=== PATIENT | male | born 1950 | race Caucasian/White ===

== ENCOUNTER 2017-07-18 18:38 | Inpatient (IN) | payer MEDICARE, BC ==
[2017-07-18 19:51] LABS: ABS Basophils 0.1 10^3/ul (0-0.2); ABS Eosinophils 0.3 10^3/ul (0-0.6); ABS Monocytes 0.5 10^3/ul (0-0.8); ABS Nucleated RBC 0 10^3/ul; Eosinophil % 3.4 % (0-6); Hematocrit 44 % (42-52); Hemoglobin 14.7 g/dl (14.0-18.0); Lymphocyte % 19.8 % (25-47); Mean Corpuscular HGB Conc 34 g/dl (31-36); Mean Corpuscular Hemoglobin 31 pg (27-31); Mean Corpuscular Volume 93 fL (80-94); Mean Platelet Volume 9 um3 (7.4-10.4); Nucleated Red Blood Cells % 0.1; Platelet Count 226 10^3/ul (150-450); Red Blood Count 4.71 10^6/ul (4.0-5.4); Red Cell Distribution Width 14 % (10.5-15); White Blood Count 9.9 10^3/ul (3.5-10.8)
--- NOTE | 2017-07-18 21:04 | RAD ---
INDICATION: Change in mental status COMPARISON: None TECHNIQUE: Noncontrast axial source images were acquired from the skull base to the vertex. FINDINGS: Ventricles/sulci: The ventricles and cisterns are normal in size and configuration for age. Brain parenchyma: There is no focal parenchymal finding, evidence of intracranial mass, or intracranial mass effect. Intracranial hemorrhage:None. Extra-axial spaces: There are no abnormal extra axial fluid collections or evidence of extra-axial mass. Calvarium: There is no calvarial fracture or other calvarial abnormality. Scalp: There is no evidence of scalp or extracalvarial soft tissue abnormality. Paranasal sinuses/mastoid: The paranasal sinuses and mastoid air cells are clear. Other: None. IMPRESSION: NEGATIVE EXAMINATION
[2017-07-18] MEDS ORDERED: Iohexol 350* (CONTRAST) 500 ML MDV IV ONE (21:43)
--- NOTE | 2017-07-18 23:05 | HP ---
HISTORY AND PHYSICAL: DATE OF ADMISSION: 07/18/17. TIME OF EVALUATION: 2100. PRIMARY CARE PHYSICIAN: The patient does not have a primary care physician. CHIEF COMPLAINT: Weakness. HISTORY OF PRESENT ILLNESS: This is a 66-year-old male, who does not see a primary care physician, who presented from [facility] after having a presyncopal event. The patient states he was in the shower around 2:45, when he became lightheaded and dizzy, had significant right-sided weakness and he went down on to the ground in the tub. He said he was awake the entire time, no trauma, no loss of consciousness. His came up to check on him, he said he was okay. He was able to get out and lie down in the bed. He noticed the right -sided weakness and tingling persisted in the bottom, right side of his lip was also numb and tingling. This lasted for about 20 to 25 minutes. His niece who was down the street came to see him, she is a retired nurse, did an evaluation, was concerned about his right- sided weakness. They called 911, who felt that he could drive in and did not need to go via EMS, so brought him into the emergency room for further evaluation. At [facility], he was noted to have an elevated troponin there of 0.04. There was concern of his heart rate in the 50s and they felt that he was having a possible NC and possible candidate for pacemaker and was referred to transfer to [facility] [place] further evaluation. The patient states that he no longer has any neurologic symptoms aside from having weird sensations that he describes of him having intermittent blurry vision. He denies any chest pain. No shortness of breath. No headache. He has never had a presyncopal never like this before. As mentioned, he does not see a primary care physician routinely. His has been concerned about him as he has been more fatigued and not as active as he normally has over the past 6 months. They also noted the increase in stress in their house with changes in living situation. Otherwise, remaining review of systems is negative. PAST MEDICAL HISTORY: The patient with history of back pain. 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 History of appendectomy and tonsillectomy. MEDICATIONS: None. ALLERGIES: No known drug allergies. FAMILY HISTORY: Mother in her 70s from Alzheimer. Father at age 82 from an NC. SOCIAL HISTORY: The patient lives at home with his , Gunjan, who is his healthcare proxy. He works as a farm tractor operator. He is smoking upto a pack per day for the past 50 years. No alcohol or drug use. His code status is full code. His living situation is complicated by his son and daughter-in- law, who is now on a wheelchair, who is with twins, who is now living with them in a 3 bedroom trailer home and now their 16-year-old grand-daughter has had to live in with the mother where she was going to end-up in retirement, so there is a lot of increase in stress. REVIEW OF SYSTEMS: A 14-point review of systems reviewed and as mentioned in the HPI. Otherwise negative. PHYSICAL EXAMINATION GENERAL: No acute distress, resting comfortably with his at the bedside. VITAL SIGNS: Temp 97.9, pulse rate 55, respiratory rate 13, oxygen saturation 96 % on room air, blood pressure 150/66. HEENT: Head normocephalic. Pupils are equal and reactive, as noted right- sided paralysis of the lateral movement. Conjunctivae anicteric. Oropharynx, mucous membranes are moist. NECK: Supple. No lymphadenopathy. RESPIRATORY: Diminished breath sounds. No wheezes, rhonchi, or rales. No increased work of breathing. CARDIAC: Bradycardic, soft systolic murmur heard throughout. ABDOMEN: Soft, nontender, nondistended. EXTREMITIES: No clubbing, cyanosis, or edema. +1 DPs. NEUROLOGICAL: Alert and oriented x3. Negative pronator drift. The patient does have a subtle left-sided facial droop. Upper and lower muscle strength is equal and intact. Negative heel to walker test. DIAGNOSTIC STUDIES/LAB DATA: White count 9.9, hemoglobin 14.7, hematocrit 44, platelets 226. Sodium 136, potassium 4, chloride 105, bicarb 23, BUN 14, creatinine 0.78. Troponin here is 0.05, it was 0.04 at [facility]. EKG shows sinus bradycardia with a rate of 43 with a right bundle-branch block and left posterior fascicular block. ASSESSMENT AND PLAN: This is a 66-year-old male with a past medical history of tobacco use who do not seen primary care physician, who presents to the emergency room from [facility] with presyncope and right-sided weakness. 1. Presyncope with right-sided weakness. Assessment: I am concerned for an acute cerebrovascular accident. His neurologic symptoms seem to have improved, although he states he does continue to get intermittent blurry vision. I suspect that his presyncope led to hypoperfusion and hypotension resulting in his elevated troponin. Plan: We will first start with the CT of the brain without contrast. If it is unremarkable, we will do a CT of the head and neck. If there are any findings suggestive of carotid stenosis or a stenosis that can be intervene upon, we will ship him to the appropriate resources. If his CT of the head and neck is unremarkable, we will bring him in for a stroke workup including echo, a neurology consultation, lipid panel, and continue him on an aspirin and trend his troponins as well. He is noted to be bradycardic. If neurology work up unremarkable would pursue further bradycardia as etiology. 2. FEN: Place him on heart-healthy diet. 3. DVT prophylaxis: The patient score is moderate risk, place him on heparin subcu t.i.d. 4. Disposition: We will place him on social work consult in light of his increasing stress at home. 5. Code status: Full code. PATIENT TIME: Greater than 60 minutes spent doing history and physical, more than half time spent in direct patient contact. [id number]/[facility] #: [id number] TYLER
[2017-07-19] MEDS ORDERED: Al Hydrox/Mg Hydrox/Simet LIQ* 30 ML UDC PO PRN (00:07)
[2017-07-19] MEDS ORDERED: Docusate CAP* 100 MG PO PRN (00:07)
[2017-07-19] MEDS ORDERED: Senna TAB PO PRN (00:07)
[2017-07-19] MEDS ORDERED: Ondansetron INJ* 2 MG/ML VIAL IV PRN (00:07)
[2017-07-19] MEDS ORDERED: Acetaminophen TAB* 325 MG PO PRN (00:07)
[2017-07-19] MEDS: Heparin VIAL(*) 5000 UNITS/ML VIAL (FIVE THOUSAND) SUBCUT SCH ×3 (06:01→21:10)
--- NOTE | 2017-07-19 07:24 | RAD ---
INDICATION: Syncope evaluate for cerebrovascular accident. COMPARISON: Comparison is made with a prior CT of the brain from July 18, 2017. TECHNIQUE: A CT angiogram of the head and neck was performed following intravenous injection of 66 ml of Omnipaque 350 nonionic contrast. Contiguous axial sections were obtained from the thoracic inlet through the skull vertex. Images were reconstructed in the coronal and sagittal planes and in a 3-D volume rendered format. The distal cervical internal carotid artery diameter is used as the denominator for stenosis measurement. FINDINGS: RIGHT CAROTID: The common and internal carotid arteries appear patent without evidence for hemodynamically significant stenosis. There is mild soft and calcific plaque present within the right carotid bulb and proximal internal carotid artery. LEFT CAROTID: The common and internal carotid arteries appear patent without evidence for hemodynamically significant stenosis. There is mild soft and calcific plaque present within the left carotid bulb and proximal internal carotid artery. VERTEBRALS: The vertebral arteries appear patent without evidence for high-grade stenosis. CTA BRAIN: The internal carotid, anterior and middle cerebral arteries appear patent without evidence for high-grade stenosis or occlusion. The vertebral, basilar and posterior cerebral arteries appear patent without evidence for high-grade stenosis or occlusion. There is origin of both posterior cerebral arteries consistent with normal variation. No gross focal perfusion abnormalities are seen. No aneurysm or vascular malformation is seen. NECK: No significant enlarged lymph nodes are seen within the neck. The thyroid, parotid and submandibular glands appear to be within normal limits. There is moderate to severe bilateral centrilobular emphysematous change present at the lung apices. The paranasal sinuses and mastoid air cells appear clear IMPRESSION: 1. NO EVIDENCE FOR HEMODYNAMICALLY SIGNIFICANT CAROTID STENOSIS. 2. NO EVIDENCE FOR LARGE VESSEL INTRACRANIAL THROMBUS. CPT II Codes: 3100F
[2017-07-19] MEDS ORDERED: Perflutren Lipid Microsphere* 3 ML VIAL ONE (08:02)
[2017-07-19] MEDS ORDERED: Aspirin TAB* 325 MG PO SCH (09:00)
--- NOTE | 2017-07-19 12:26 | RAD ---
INDICATION: Cerebrovascular accident evaluation. COMPARISON: Comparison is made with a prior CT of the brain from [place] 2018. TECHNIQUE: Sagittal T1, axial T1, T2, susceptibility, FLAIR and diffusion weighted images were obtained. FINDINGS: The ventricles, cisterns and sulci appear to be within normal limits. No significant focal abnormality or mass effect is seen. No areas of restricted diffusion are present. There is no evidence for infarct or hemorrhage. The visualized portion of the paranasal sinuses and mastoid air cells appear clear. IMPRESSION: NO EVIDENCE FOR ACUTE INTRACRANIAL ABNORMALITY.
--- NOTE | 2017-07-19 13:53 | ECHO ---
Patient: FORTINO FIGUEROA [facility] Rec#: [id number] : 1950 Date: 07/19/2017 Age: 66y Height: 177.8 cm / 70.0 in Weight: 83.01 kg / 183.0 lbs Sex: M BSA: 2.01 Room#: [facility] Admit Date#: 07/19/2017 Type: Inpatient Referring: Autumn Benjamin Reading: Bimal Martin MD [employer] Supervisor: Anay Mills [facility] Transthoracic Echocardiogram Indication: SOB/CVA BP: 141/62 HR: 56 Rhythm: Bradycardia Findings History: Smoker, chronic back pain,adm with right sided weakness,pre-syncope. Study done supine for patient comfort. Technical Comments: The study is technically difficult. Completed at 0836. The study is technically limited due to the patient's history of COPD. The study is technically limited due to the patient's smoking history. The study was technically limited due to the patient's inability to lay in the left lateral decubitus position. Left Ventricle: The left ventricular chamber size is normal. Moderate concentric left ventricular hypertrophy is observed. The estimated ejection fraction is 60-65%. There is no consistent Doppler evidence of clinically significant diastolic dysfunction. Left Atrium: The left atrial chamber size is normal. Right Ventricle: The right ventricle wall thickness is mildly increased. The right ventricular cavity size is normal. The right ventricular global systolic function is normal. Right Atrium: The right atrial cavity size is normal. Aortic Valve: The aortic valve is trileaflet. Best seen in subcostal view. The aortic valve leaflets are mildly thickened. There is no evidence of aortic regurgitation. There is no evidence of aortic stenosis. Mitral Valve: The mitral valve leaflets appear normal. There is no evidence of mitral regurgitation. There is no evidence of mitral stenosis. Tricuspid Valve: The tricuspid valve leaflets are normal. There is trace tricuspid regurgitation. Unable to estimate the right ventricular systolic pressure. There is evidence that pulmonary hypertension may be underestimated. There is no tricuspid stenosis. Pulmonic Valve: The pulmonic valve appears normal. Best seen in subcostal view. There is no evidence of pulmonic regurgitation. There is no pulmonic stenosis. Pericardium: The pericardium appears normal. Aorta: The ascending aorta is not well visualized. There is no dilatation of the aortic arch. There is mild dilatation of the aortic root. Pulmonary Artery: The main pulmonary artery appears normal. Contrast: Definity was used to optimize study. A total of 4 ml. used. Intravenous contrast was used to enhance endocardial border definition. Summary: There was not any prior study for comparison. Conclusions The study is technically difficult. Undetermined rhythm: slow irregular rhythm with intermittent IVCD Moderate concentric left ventricular hypertrophy is observed. The estimated ejection fraction is 60-65%. There is trace tricuspid regurgitation. Measurements Name Value Normal Range RVDdMajor (2D) 3.3 cm (2.2 - 4.4) RAd ISD 4CH 4 cm (3.4 - 4.9) RA (A4C)W 3.2 cm (2.9 - 4.6) IVSd (2D) 1.4 cm (0.6 - 1) LVPWd (2D) 1.5 cm (0.6 - 1) LVIDd (2D) 4 cm (3.6 - 5.4) LVIDs (2D) 2 cm - LV FS (2D) 50 % (25 - 45) Aortic Annulus 2.4 cm (1.4 - 2.6) Ao root diameter (2D) 3.8 cm (2.1 - 3.5) Aortic arch 2.2 cm (1.8 - 3.4) Descending Ao 0.6 cm - LA dimension (AP) 2D 3.5 cm (2.3 - 3.8) LAd ISD 4CH 5.2 cm (2.9 - 5.3) LA ISD 4CH W 4 cm (2.5 - 4.5) Name Value Normal Range LA ESV SP 4CH (A/L) 55 ml - LA ESV SP 2CH (A/L) 80 ml - LA ESV BP (A/L) 40 ml - LA ESV BP (A/L) index 34.62 ml/m2 - LA ESV SP 4CH (MOD) 52 ml - LA ESV SP 2CH (MOD) 76 ml - Name Value Normal Range MV E-wave Vmax 0.6 m/sec - MV deceleration time 300 msec - MV A-wave Vmax 0.6 m/sec - MV E:A ratio 1.05 ratio - LV septal e' Vmax 0.09 m/sec - LV lateral e' Vmax 0.09 m/sec - LV E:e' septal ratio 6.67 ratio - LV E:e' lateral ratio 6.67 ratio - Name Value Normal Range AV Vmax 1.2 m/sec - AV VTI 27.8 cm - AV peak gradient 5.94 mmHg - AV mean gradient 2.49 mmHg - LVOT Vmax 1 m/sec - LVOT VTI 23.9 cm - LVOT peak gradient 4.05 mmHg - LVOT mean gradient 1.96 mmHg - Name Value Normal Range IVC diameter 1.4 cm - Name Value Normal Range PV Vmax 0.9 m/sec - PV peak gradient 2.95 mmHg -
--- NOTE | 2017-07-19 17:28 | CONS ---
NEUROLOGY CONSULTATION: DATE OF CONSULT: 07/19/17 LOCATION: He is an inpatient, room 445. REFERRING PHYSICIAN: Dr. Autumn Benjamin. CHIEF COMPLAINT: Episode of weakness. 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 He suddenly found himself dropping to the shower floor. He ended up in a seated position. His heard him fall and called to ask if he was all right and he slowly responded that he was fine. After a while and with some difficulty, he was gradually able to get himself up and out of the shower and made it to his bed. While he was on the shower floor, he believes he did not lose consciousness, but felt a little bit nauseous and felt perhaps his vision was blurry. It is hard for him to tell as he has poor vision without his glasses on anyway. He noticed some sense of numbness and tingling in both of his feet and legs. He noted a little bit of numbness and tingling in his hands and a little bit on the right lower lip. He felt short of breath but he did not have any chest pain. When his saw him, she said he was speaking extremely slowly. He seemed to be having difficulty breathing. After rest, it resolved and he felt better, but announced he was going to the hospital. He went to [facility] where he had a borderline troponin at 0.04 and his heart rate was in the 50s and he was transferred to [facility]. He was evaluated by Dr. Benjamin. Dr. Benjamin thought he might have a subtle left facial droop, but his strength in his limbs was normal. He has never had an episode of syncope before. He has no history of seizures, no history of heart disease, but he does not see physicians on any regular basis. There is no history of stroke or seizures. Currently, he feels back to normal other than being very tired having not slept last night. PAST MEDICAL HISTORY: Notable for chronic tobacco use. He does not see physicians and does not take any medications. PAST SURGICAL HISTORY: He has a history of an appendectomy and tonsillectomy. FAMILY HISTORY: Notable for Alzheimer's disease in his mother, who in her 70s. SOCIAL HISTORY: He lives with his . There are numerous family members present during the evaluation today. He smokes a pack of cigarettes per day for many decades and does not drink alcohol. REVIEW OF SYSTEMS: Negative for previous cardiac disease, pulmonary disease, problems. He has occasionally gastroesophageal reflux. He has a chronic back pain from thoracic compression fracture that he got in the 70s. He has chronic numbness in the distal half of each feet. He works as a roofing contractor. He has chronic strabismus of the right eye. No history of endocrine disease, no diabetes. Other than the back pain, no rheumatological disorders. PHYSICAL EXAM: He is well nourished and well hydrated. Temperature 98.3; blood pressure is running about 140/70; heart rates in the 40s, but it has dipped down to 34. Heart is in a generally regular rhythm with frequent ectopic beats. Respiratory rate is 20 with oxygen saturation of 98% on room air. Lungs are clear bilaterally. There are no cardiac murmurs. There are no cervical bruits. Oral mucosa is moist and atraumatic. Neurologic Exam: Pupils react equally from 3 to 2.5 mm. He has exotropia OD on upgaze and diminished adduction OD with tracking. He has normal eye movements on the left. Visual key are full to confrontation. Facial musculature is symmetric. Facial sensation to light touch is symmetric as well. Palate and tongue appear normal, palate raises symmetrically, and tongue protrudes in the midline. He is a little hard of hearing. Neck strength is intact. Motor exam feels mild atrophy of feet intrinsics. He has normal strength and muscle tone proximally and distally in the upper and lower extremities otherwise. There is no pronator drift. Finger taps are symmetrical in the hands. There is no rest or action tremor. Witz-[id number] maneuver is normal bilaterally. On sensory exam, he has loss of vibratory sense in the toes with normal proprioception. Light touch is absent in the distal halves of the feet, but intact and symmetrical elsewhere. Reflexes are hypoactive, but present including at the ankles. Plantar responses are flexor bilaterally. Standard and tandem gait are normal. He is alert and oriented to person, place, and time. He is a good historian with intact memory. Language is fluent. He has good attention, concentration, and adequate fund of knowledge. DIAGNOSTIC STUDIES/LAB DATA: Includes a brain MRI scan, which I reviewed and it was essentially normal. Transthoracic echocardiogram is technically limited, but otherwise normal. CT angiogram of the head and neck did not reveal any significant atherosclerotic disease. Other laboratory data notable for slightly elevated troponin when he came in at 0.05, subsequently it has been 0.03 twice. Chemistry profile was otherwise unremarkable. Cholesterol 227, LDL 163. TSH is normal at 1.73. CBC is within normal limits. IMPRESSION AND PLAN: Impression is that of a near syncopal episode. I do not see evidence that he has had a stroke either by MR imaging or clinically. He is quite bradycardic and I suspect that he hypoperfused leading to the fall and subsequent weakness. I have explained my impression to Mr. eKarns and his family and answered questions. I think it is reasonable to continue aspirin 81 mg per day, but I think he should have a Cardiology consultation at this point, and I discussed my opinion with Kemi Gonzalez NP, who is currently his hospitalist. [id number]/[facility] #: [id number] TYLER
[2017-07-19] MEDS: Aspirin EC TAB* 325 MG PO SCH (18:10)
[2017-07-19] MEDS: Atorvastatin* 40 MG TAB PO SCH (20:03)
--- NOTE | 2017-07-19 20:35 | ED ---
Haven English Emily, scribed for Morgan Vargas MD on 07/18/17 at 1923 . Syncope/Near Syncope - HPI Summary HPI Summary: This patient is a 66 year old M BIBA to [facility] accompanied by family with a chief complaint of syncope that occurred at 1300 today. Pt is unsure how long he was unconscious for. Pt denies any injury upon falling. The patient rates the pain 0/10 in severity. Symptoms aggravated by nothing. Symptoms alleviated by nothing. Patient reports blurred vision. Pt was referred to [facility] by Rubin due to elevated troponin. Pt reports having similar symptoms previously. Medications reviewed. Allergies reviewed. - History Of Current Complaint Chief Complaint: EDSyncope Hx Obtained From: Patient Onset/Duration: Sudden Onset Timing: Constant Context: Unwitnessed, Loss Of Consciousness Associated Head Trauma: No Aggravating Factor(s): Nothing Alleviating Factor(s): Nothing Associated Signs And Symptoms: Other - Positive blurred vision PMH/Surg Hx/FS Hx/Imm Hx Previously Healthy: No Cardiovascular History: Reports: Hx Hypertension - Borderline Opthamlomology History: Denies: Hx Legally Blind EENT History: Denies: Hx Deafness - Surgical History Surgery Procedure, Year, and Place: Appendectomy Infectious Disease History: No Infectious Disease History: Denies: Traveled Outside the [place] in Last 30 Days - Family History Known Family History: Positive: Cardiac Disease, Other Negative: Diabetes Family History: Alzheimer's - Social History Occupation: Employed Full-time Lives: With Family Alcohol Use: None Substance Use Type: Reports: None Hx Tobacco Use: Yes Smoking Status (MU): Heavy Every Day Tobacco Smoker Review of Systems Negative: Fever Positive: Blurred Vision Positive: Syncope All Other Systems Reviewed And Are Negative: Yes Physical Exam - Summary Physical Exam Summary: Appearance: Well-appearing, Well-nourished Skin: Warm, No rash, Feet are slightly cold Eyes: Normal, PERRL, EOMI, sclera anicteric ENT: Normal Neck: Supple, nontender Respiratory: Clear to auscultation Cardiovascular: S1, S2, no murmur, no rub, no gallop Abdomen: Soft, nontender, no organomegaly Bowel sounds: Present Musculoskeletal: Normal, Strength/ROM Intact, no edema, pulses symmetrical, decreased pulses below the popliteals Neurological: Normal, A&Ox3, cranial nerves II-XII WNL, follows commands, gait not tested, sensation intact to pin and light touch Psychiatric: affect normal, behavior appropriate, dressed appropriately, judgment intact Triage Information Reviewed: Yes Vital Signs On Initial Exam: Initial Vitals Temp Pulse Resp BP Pulse Ox 97.9 F 51 20 155/58 98 07/18/17 18:41 07/18/17 18:41 07/18/17 18:41 07/18/17 18:41 07/18/17 18:41 Vital Signs Reviewed: Yes - [place] Coma Scale Coma Scale Total: 15 Diagnostics - Vital Signs Vital Signs Temp Pulse Resp BP Pulse Ox 07/18/17 19:00 47 15 153/79 98 07/18/17 18:50 49 13 98 07/18/17 18:48 155/58 07/18/17 18:41 97.9 F 51 20 155/58 98 - Laboratory Result Diagrams: 07/18/17 19:40 07/18/17 19:40 Lab Statement: Any lab studies that have been ordered have been reviewed, and results considered in the medical decision making process. - CT Brain CT CT Interpretation Completed By: Radiologist - Brain CT reveals, per radiologist , negative examination. CTA Head and Neck CT Interpretation Completed By: Radiologist - CT CTA head and neck reveals, per radiologist, bilateral carotid siphons, anterior, middle and posterior cerebral arteries are patent without high-grade stenosis or occlusion. 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 The basilar artery is patent. No AV malformation or aneurysmal dilatation is identified. No abnormally enhancing lesion is seen in the brain parenchyma. There is bovine origin of the left common carotid artery is noted incidentally. Mild stenosis approximately 30% by NASCET criteria involving the right carotid bifurcation. Minimal narrowing of the right proximal internal carotid artery also. There is mild less than 30% stenosis of left carotid bifurcation also. Bilateral vertebral arteries are hypo plastic but patent without occlusion or dissection. No neck mass or lymphadenopathy noted. Bullous emphysema of the lung apices. Atherosclerotic plaque seen in the distal thoracic aortic arch. ED physician has reviewed this radiology report. - EKG 1919 Cardiac Rate: Bradycardia EKG Rhythm: Sinus Rhythm - 43 BPM EKG Interpretation: RBBB. Left posterior fascicular bump Course/Dx Assessment/Plan: This patient is a 66 year old M BIBA to [facility] accompanied by family with a chief complaint of syncope that occurred at 1300 today. Pt is unsure how long he was unconscious for. Pt denies any injury upon falling. Pt was referred to [facility] by Rubin due to elevated troponin. FHX heart disease. Physical Exam Findings. Feet are a little cold. Decreased pulses below the popliteals. An EKG taken at 1920 reveals sinus bradycardia at 43 BPM with RBBB and left posterior fascicular bump. Consult with Dr. Benjamin (hospitalist) at 2025. She agrees to admit pt. Patient will be admitted for further evaluation. The patient is agreeable with this plan. - Diagnoses Provider Diagnoses: Bradycardia, Syncope, Bifascicular block - Physician Notifications Discussed Care of Patient With: Autumn Benjamin Time Discussed With Above Provider: 20:26 Instructed by Provider To: Other - Consult with Dr. Ziegler (hospitalist) at 2025. She agrees to admit pt. Discharge - Discharge Plan Condition: Stable Disposition: ADMITTED TO [facility] Referrals: No Primary Care Phys,NOPCP [Primary Care Provider] - The documentation as recorded by the Haven raygoza Emily accurately reflects the service I personally performed and the decisions made by me, Morgan Vargas MD.
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
--- NOTE | 2017-07-19 23:38 | PN ---
Subjective Date of Service: 07/19/17 Interval History: Denies chest pain, Shortness of breath. Denies abd pain. Denies Nausea vomiting or diarrhea. Denies weakness. Denies dizziness. Family History: Unchanged from Admission Social History: Unchanged from Admission Past Medical History: Unchanged from Admission Objective Active Medications: Acetaminophen (Tylenol Tab*) 650 mg PO Q4H PRN PRN Reason: FEVER/PAIN Al Hydrox/Mg Hydrox/Simethicone (Maalox Plus*) 30 ml PO Q6H PRN PRN Reason: INDIGESTION Aspirin (Ecotrin Ec Tab*) 325 mg PO DAILY [facility] Last Admin: 07/19/17 18:10 Dose: Not Given Atorvastatin Calcium (Lipitor*) 40 mg PO 2100 [facility] Last Admin: 07/19/17 20:03 Dose: 40 mg Docusate Sodium (Colace Cap*) 100 mg PO BID PRN PRN Reason: CONSTIPATION Heparin Sodium (Porcine) (Heparin Vial(*)) 5,000 units SUBCUT Q8HR [facility] Last Admin: 07/19/17 21:10 Dose: Not Given Ondansetron HCl (Zofran Inj*) 4 mg IV Q4H PRN PRN Reason: NAUSEA/VOMITING Senna (Senokot Tab*) 1 tab PO BID PRN PRN Reason: CONSTIPATION Vital Signs - 8 hr 07/19/17 07/19/17 15:47 20:07 Temperature 98.2 F 98.1 F Pulse Rate 35 25 Respiratory 16 20 Rate Blood Pressure 138/53 115/60 (mmHg) O2 Sat by Pulse 94 97 Oximetry Oxygen Devices in Use Now: None Eyes: No Scleral Icterus Ears/Nose/Mouth/Throat: Clear Oropharnyx, Mucous Membranes Moist Neck: NL Appearance and Movements; NL JVP, Trachea Midline Respiratory: Symmetrical Chest Expansion and Respiratory Effort, Clear to Auscultation Cardiovascular: NL Sounds; No Murmurs; No JVD, No Edema Abdominal: NL Sounds; No Tenderness; No Distention Extremities: No Edema, No Clubbing, Cyanosis Skin: No Rash or Ulcers Neurological: Alert and Oriented x 3, NL Sensation, NL Gait, NL Muscle Strength and Tone, - - No focal neurological deficit, hand sheet fed printer equal, tongue midline, smile equal, pupils equal and reactive to light, Nutrition: Taking PO's Result Diagrams: 07/20/17 16:02 07/20/17 15:56 Assess/Plan/Problems-Billing Assessment: This a 66 y.o male who has not follow with a primary care provider; came to the emergency room with right sided weakness and pre-syncopal vs TIA symptoms. Patient found to be bradycardic. Neurology consult and Cardiology consult appreciated - Patient Problems (1) Bradycardia Current Visit: Yes Status: Acute Code(s): R00.1 - BRADYCARDIA, UNSPECIFIED SNOMED Code(s): 77536757 Comment: Cardiology consult appreciated ASA 325 mg po daily Nuclear stress in AM (2) Pre-syncope Current Visit: Yes Status: Acute Comment: monitor on telemetry Cardiology consult (3) Abnormal EKG Current Visit: Yes Status: Acute Code(s): R94.31 - ABNORMAL ELECTROCARDIOGRAM [ECG] [EKG] SNOMED Code(s): 661619178 Comment: Nuclear stress test in AM Troponins trended (4) Elevated d-dimer Current Visit: Yes Status: Acute Code(s): R79.89 - OTHER SPECIFIED ABNORMAL FINDINGS OF BLOOD CHEMISTRY SNOMED Code(s): 500399395 Comment: Suspect this is related to smoking and possible underlying Lung disease Denies chest pain, the patient is not tachycardic, denies shortness of breath, denies leg pain, patient has a negative homans sign, there is no swelling no right ventricular enlargement on the echocardiogram The patient has a low probability of PE Status and Disposition: inpatient stress nuclear in the AM
[2017-07-20] MEDS: Heparin VIAL(*) 5000 UNITS/ML VIAL (FIVE THOUSAND) SUBCUT SCH ×3 (05:13→21:56)
[2017-07-20] MEDS: Aspirin EC TAB* 325 MG PO SCH (07:21)
[2017-07-20] MEDS ORDERED: Regadenoson* 0.4 MG/5 ML SYRINGE ONE (11:20)
[2017-07-20] MEDS ORDERED: Aminophylline IV* 25 MG/ML 10 ML VIAL ONE (11:20)
--- NOTE | 2017-07-20 15:44 | RAD ---
Edited for charges. INDICATION: Shortness of breath, elevated cholesterol, hypertension, abnormal EKG, family history of heart disease. COMPARISON: No relevant prior exams available on the [facility] PACS for comparison. TECHNIQUE: 10.600 mCi of Tc-99m Myoview were administered IV. SPECT images of the heart were obtained. Later on the same day. Under the direction of Dr. Fung, an exercise stress test was performed. The patient achieved a peak heart rate of 127 bpm, 84 % of the age- predicted maximum. Subsequently, the patient was given an IV injection of 25.100 mCi Tc- 99m Myoview. SPECT images of the heart were obtained and a gated wall motion study was performed. FINDINGS: Gated wall motion images were obtained at stress and demonstrate wall motion to be within normal limits. The calculated left ventricular ejection fraction is 65 % at stress. Estimated LEFT ventricular end diastolic volume is 72 mL. TID 1.01. Extensive diaphragmatic attenuation noted. Based on review of the attenuation corrected and non corrected images the distribution of radiopharmaceutical within the myocardium on the stress and rest images is within normal limits. No fixed or reversible regions of hypoperfusion evident. IMPRESSION: 1. No evidence for stress induced myocardial ischemia or presence of an infarct. 2. Normal left ventricular wall motion and ejection fraction. ASSESSMENT: Low risk based on the nuclear portion. Based on imaging criteria from ACC/AHA 2002 Guideline Update for the Management of Patients With Chronic Stable Angina Table 23. Noninvasive Risk Stratification. MTDD
[2017-07-20 16:13] LABS: ABS Basophils 0.1 10^3/ul (0-0.2); ABS Eosinophils 0.3 10^3/ul (0-0.6); ABS Lymphocytes 1.8 10^3/ul (1.0-4.8); ABS Monocytes 0.6 10^3/ul (0-0.8); ABS Neutrophils 5.1 10^3/ul (1.5-7.7); ABS Nucleated RBC 0 10^3/ul; Eosinophil % 4.3 % (0-6); Hematocrit 43 % (42-52); Hemoglobin 14.6 g/dl (14.0-18.0); Lymphocyte % 22.7 % (25-47); Mean Corpuscular HGB Conc 34 g/dl (31-36); Mean Corpuscular Hemoglobin 31 pg (27-31); Mean Corpuscular Volume 93 fL (80-94); Mean Platelet Volume 10 um3 (7.4-10.4); Nucleated Red Blood Cells % 0; Platelet Count 224 10^3/ul (150-450); Red Blood Count 4.68 10^6/ul (4.0-5.4); Red Cell Distribution Width 14 % (10.5-15)
--- NOTE | 2017-07-20 18:33 | PN ---
Subjective Date of Service: 07/20/17 Interval History: Resting in bed , alert to verbal, no complaints , Denies chest pain, Shortness of breath, or abd pain. Denies N/V/D. Denies weakness or dizziness. Family History: Unchanged from Admission Social History: Unchanged from Admission Past Medical History: Unchanged from Admission Objective Active Medications: Acetaminophen (Tylenol Tab*) 650 mg PO Q4H PRN PRN Reason: FEVER/PAIN Al Hydrox/Mg Hydrox/Simethicone (Maalox Plus*) 30 ml PO Q6H PRN PRN Reason: INDIGESTION Aspirin (Ecotrin Ec Tab*) 325 mg PO DAILY [facility] Last Admin: 07/20/17 07:21 Dose: 325 mg Atorvastatin Calcium (Lipitor*) 40 mg PO 2100 [facility] Last Admin: 07/19/17 20:03 Dose: 40 mg Docusate Sodium (Colace Cap*) 100 mg PO BID PRN PRN Reason: CONSTIPATION Heparin Sodium (Porcine) (Heparin Vial(*)) 5,000 units SUBCUT Q8HR [facility] Last Admin: 07/20/17 14:52 Dose: Not Given Ondansetron HCl (Zofran Inj*) 4 mg IV Q4H PRN PRN Reason: NAUSEA/VOMITING Senna (Senokot Tab*) 1 tab PO BID PRN PRN Reason: CONSTIPATION Oxygen Devices in Use Now: None Appearance: appear comfortable sitting in bed, alert and oriented x 3 Eyes: No Scleral Icterus Ears/Nose/Mouth/Throat: Clear Oropharnyx, Mucous Membranes Moist Neck: NL Appearance and Movements; NL JVP, Trachea Midline Respiratory: Symmetrical Chest Expansion and Respiratory Effort, Clear to Auscultation Cardiovascular: NL Sounds; No Murmurs; No JVD, RRR, No Edema Abdominal: NL Sounds; No Tenderness; No Distention Extremities: No Edema, No Clubbing, Cyanosis Skin: No Rash or Ulcers Neurological: Alert and Oriented x 3 Nutrition: Taking PO's Result Diagrams: 07/20/17 16:02 07/20/17 15:56 Assess/Plan/Problems-Billing Assessment: This a 66 y.o male who has not follow with a primary care provider; came to the emergency room with right sided weakness and pre-syncopal vs TIA symptoms. Patient found to be bradycardic. Neurology consult and Cardiology consult appreciated - Patient Problems (1) Bradycardia Current Visit: Yes Status: Acute Code(s): R00.1 - BRADYCARDIA, UNSPECIFIED SNOMED Code(s): 88834250 Comment: Cardiology consult appreciated ASA 325 mg po daily Nuclear stress in AM- low risk (2) Pre-syncope Current Visit: Yes Status: Acute Comment: monitor on telemetry Cardiology consult (3) Abnormal EKG Current Visit: Yes Status: Acute Code(s): R94.31 - ABNORMAL ELECTROCARDIOGRAM [ECG] [EKG] SNOMED Code(s): 344028864 Comment: Nuclear stress test in AM Troponins trended (4) Elevated d-dimer Current Visit: Yes Status: Acute Code(s): R79.89 - OTHER SPECIFIED ABNORMAL FINDINGS OF BLOOD CHEMISTRY SNOMED Code(s): 648630295 Comment: Suspect this is related to smoking and possible underlying Lung disease Denies chest pain, the patient is not tachycardic, denies shortness of breath, denies leg pain, patient has a negative homans sign, there is no swelling no right ventricular enlargement on the echocardiogram The patient has a low probability of PE Status and Disposition: inpatient stress nuclear -low risk, bradycardia- cardiology pending
[2017-07-20] MEDS: Atorvastatin* 40 MG TAB PO SCH (21:55)
[2017-07-21] MEDS: Heparin VIAL(*) 5000 UNITS/ML VIAL (FIVE THOUSAND) SUBCUT SCH ×3 (06:02→20:30)
[2017-07-21 06:07] LABS: ABS Basophils 0.1 10^3/ul (0-0.2); ABS Eosinophils 0.5 10^3/ul (0-0.6); ABS Monocytes 0.5 10^3/ul (0-0.8); ABS Nucleated RBC 0 10^3/ul; Eosinophil % 7.7 % (0-6); Hematocrit 42 % (42-52); Hemoglobin 13.8 g/dl (14.0-18.0); Lymphocyte % 33.2 % (25-47); Mean Corpuscular HGB Conc 33 g/dl (31-36); Mean Corpuscular Hemoglobin 31 pg (27-31); Mean Corpuscular Volume 92 fL (80-94); Mean Platelet Volume 9 um3 (7.4-10.4); Nucleated Red Blood Cells % 0.3; Platelet Count 207 10^3/ul (150-450); Red Blood Count 4.49 10^6/ul (4.0-5.4); Red Cell Distribution Width 14 % (10.5-15); White Blood Count 6.1 10^3/ul (3.5-10.8)
[2017-07-21] MEDS: Aspirin EC TAB* 325 MG PO SCH (09:31)
[2017-07-21] MEDS: Atorvastatin* 40 MG TAB PO SCH (20:30)
--- NOTE | 2017-07-22 00:33 | PN ---
Subjective Date of Service: 07/21/17 Interval History: No complaints. Denies chest pain, Shortness of breath or abd pain. denies N/V /D. Family History: Unchanged from Admission Social History: Unchanged from Admission Past Medical History: Unchanged from Admission Objective Active Medications: Acetaminophen (Tylenol Tab*) 650 mg PO Q4H PRN PRN Reason: FEVER/PAIN Al Hydrox/Mg Hydrox/Simethicone (Maalox Plus*) 30 ml PO Q6H PRN PRN Reason: INDIGESTION Aspirin (Ecotrin Ec Tab*) 325 mg PO DAILY [facility] Last Admin: 07/21/17 09:31 Dose: 325 mg Atorvastatin Calcium (Lipitor*) 40 mg PO 2100 [facility] Last Admin: 07/21/17 20:30 Dose: 40 mg Docusate Sodium (Colace Cap*) 100 mg PO BID PRN PRN Reason: CONSTIPATION Heparin Sodium (Porcine) (Heparin Vial(*)) 5,000 units SUBCUT Q8HR [facility] Last Admin: 07/21/17 20:30 Dose: Not Given Cefazolin Sodium/Dextrose (Kefzol 2 Gm Premix(*)) 2 gm in 50 mls @ 100 mls/hr IVPB ONCE ONE Stop: 07/24/17 07:29 Sodium Chloride (Ns 0.9% 1000 Ml*) 1,000 mls @ 75 mls/hr IV PER RATE [facility] Ondansetron HCl (Zofran Inj*) 4 mg IV Q4H PRN PRN Reason: NAUSEA/VOMITING Senna (Senokot Tab*) 1 tab PO BID PRN PRN Reason: CONSTIPATION Vital Signs - 8 hr 07/21/17 07/21/17 07/21/17 19:15 19:31 19:50 Temperature 98.3 F Pulse Rate 50 30 59 Respiratory 18 Rate Blood Pressure 134/52 (mmHg) O2 Sat by Pulse 95 Oximetry 07/21/17 20:00 Temperature Pulse Rate Respiratory 18 Rate Blood Pressure (mmHg) O2 Sat by Pulse Oximetry Oxygen Devices in Use Now: None, Tracheostomy Tube Appearance: appears well, appears comfortable resting in bed Eyes: No Scleral Icterus Ears/Nose/Mouth/Throat: Clear Oropharnyx, Mucous Membranes Moist Neck: NL Appearance and Movements; NL JVP, Trachea Midline Respiratory: Symmetrical Chest Expansion and Respiratory Effort, Clear to Auscultation Cardiovascular: NL Sounds; No Murmurs; No JVD, RRR, No Edema Abdominal: NL Sounds; No Tenderness; No Distention Extremities: No Edema, No Clubbing, Cyanosis Skin: No Rash or Ulcers Neurological: Alert and Oriented x 3, NL Gait, NL Muscle Strength and Tone Nutrition: Taking PO's Result Diagrams: 07/21/17 05:54 07/20/17 15:56 Assess/Plan/Problems-Billing Assessment: This a 66 y.o male who has not follow with a primary care provider; came to the emergency room with right sided weakness and pre-syncopal vs TIA symptoms. Patient found to be bradycardic. Neurology consult and Cardiology consult appreciated Will have pacemaker placed for bradycardia on monday. - Patient Problems (1) Bradycardia Current Visit: Yes Status: Acute Code(s): R00.1 - BRADYCARDIA, UNSPECIFIED SNOMED Code(s): 78433364 Comment: Cardiology consult appreciated ASA 325 mg po daily Nuclear stress in AM- low risk Will have pacemaker placed monday or monday. to stay inpatient until pacemaker is placed (2) Pre-syncope Current Visit: Yes Status: Acute Comment: monitor on telemetry Cardiology consult Suspect this is related to bradycardia- pacermaker placement on monday or monday (3) Abnormal EKG Current Visit: Yes Status: Acute Code(s): R94.31 - ABNORMAL ELECTROCARDIOGRAM [ECG] [EKG] SNOMED Code(s): 809982582 Comment: Nuclear stress test - WNL Troponins trended (4) Elevated d-dimer Current Visit: Yes Status: Acute Code(s): R79.89 - OTHER SPECIFIED ABNORMAL FINDINGS OF BLOOD CHEMISTRY SNOMED Code(s): 442402958 Comment: Suspect this is related to smoking and possible underlying Lung disease Denies chest pain, the patient is not tachycardic, denies shortness of breath, denies leg pain, patient has a negative homans sign, there is no swelling no right ventricular enlargement on the echocardiogram The patient has a low probability of PE Status and Disposition: inpatient stress nuclear -low risk, bradycardia- cardiology pending- pacermaker monday or monday, will need to stay inpatient until pacer is placed He is declining heparin injections for DVT prophylaxis. Encourage patient to ambulate in the hallways.
[2017-07-22] MEDS: Heparin VIAL(*) 5000 UNITS/ML VIAL (FIVE THOUSAND) SUBCUT SCH ×3 (05:52→21:03)
[2017-07-22] MEDS: Aspirin EC TAB* 325 MG PO SCH (08:20)
--- NOTE | 2017-07-22 14:48 | PN ---
Subjective Date of Service: 07/22/17 Interval History: Patient seen and examined at bedside. Denies fever, chills, dizziness, shortness of breath, chest discomfort, N/V/D. He indorses lightheadedness if he stands up to fast. He is angry that he has to be here over the weekend and is insisting on taking a shower. Tele: Sinus raulito, rate 40-60's Family History: Unchanged from Admission Social History: Unchanged from Admission Past Medical History: Unchanged from Admission Objective Active Medications: Acetaminophen (Tylenol Tab*) 650 mg PO Q4H PRN Reason: FEVER/PAIN Al Hydrox/Mg Hydrox/Simethicone (Maalox Plus*) 30 ml PO Q6H PRN Reason: INDIGESTION Aspirin (Ecotrin Ec Tab*) 325 mg PO DAILY [facility] Atorvastatin Calcium (Lipitor*) 40 mg PO 2100 [facility] Docusate Sodium (Colace Cap*) 100 mg PO BID PRN Reason: CONSTIPATION Heparin Sodium (Porcine) (Heparin Vial(*)) 5,000 units SUBCUT Q8HR [facility] Cefazolin Sodium/Dextrose (Kefzol 2 Gm Premix(*)) 2 gm in 50 mls @ 100 mls/hr IVPB ONCE ONE Stop: 07/24/17 07:29 Sodium Chloride (Ns 0.9% 1000 Ml*) 1,000 mls @ 75 mls/hr IV PER RATE [facility] Ondansetron HCl (Zofran Inj*) 4 mg IV Q4H PRN Reason: NAUSEA/VOMITING Senna (Senokot Tab*) 1 tab PO BID PRN Reason: CONSTIPATION Vital Signs - 8 hr 07/22/17 07/22/17 07/22/17 07:25 08:02 12:26 Temperature 97.3 F 97.6 F Pulse Rate 40 46 Respiratory 18 16 16 Rate Blood Pressure 139/58 134/60 (mmHg) O2 Sat by Pulse 95 96 Oximetry Oxygen Devices in Use Now: None Appearance: NAD, laying in bed Ears/Nose/Mouth/Throat: Mucous Membranes Moist Respiratory: Symmetrical Chest Expansion and Respiratory Effort, Clear to Auscultation Cardiovascular: NL Sounds; No Murmurs; No JVD, RRR Abdominal: NL Sounds; No Tenderness; No Distention Extremities: No Edema Skin: No Rash or Ulcers Neurological: Alert and Oriented x 3, NL Muscle Strength and Tone Lines/Tubes/Other Access: Clean, Dry and Intact Peripheral IV - site benign Nutrition: Taking PO's Result Diagrams: 07/21/17 05:54 07/20/17 15:56 Assess/Plan/Problems-Billing Assessment: Mr. Kearns is a 66 y.o male who has not followed with a primary care provider; came to the emergency room with right sided weakness and pre-syncopal vs TIA symptoms. Patient found to have symptomatic bradycardia. Neurology consult and Cardiology consult appreciated Will have pacemaker placed for bradycardia on Monday. - Patient Problems (1) Bradycardia Code(s): R00.1 - BRADYCARDIA, UNSPECIFIED SNOMED Code(s): 17148497 Comment: - Asymptomatic at this time - Cardiology consult, input appreciated - Nuclear stress - low risk - Continue ASA 325 mg po daily - Will have pacemaker placed monday or monday, needs to stay inpatient until. (2) Abnormal EKG Code(s): R94.31 - ABNORMAL ELECTROCARDIOGRAM [ECG] [EKG] SNOMED Code(s): 523910863 Comment: - Nuclear stress test - Low risk (3) Elevated d-dimer Code(s): R79.89 - OTHER SPECIFIED ABNORMAL FINDINGS OF BLOOD CHEMISTRY SNOMED Code(s): 603173001 Comment: - Suspect this is related to smoking and possible underlying Lung disease - Denies chest pain, the patient is not tachycardic, denies shortness of breath , denies leg pain, patient has a negative homans sign, there is no swelling - No right ventricular enlargement on the echocardiogram - The patient has a low probability of PE, no not pursue further work-up of elevated d-dimer (4) Pre-syncope Comment: - Suspect this is related to bradycardia - Plan for pacermaker placement on monday or monday (5) Smoker Code(s): F17.200 - NICOTINE DEPENDENCE, UNSPECIFIED, UNCOMPLICATED SNOMED Code (s): 03379953 Comment: - Declines nicotine replacement (6) DVT prophylaxis Code(s): QNF2096 - SNOMED Code(s): 365640163 Comment: - SQ heparin, Pt is declining (7) Full code status Code(s): Z78.9 - OTHER SPECIFIED HEALTH STATUS SNOMED Code(s): 142314659 Status and Disposition: Inpatient, here until pacemaker placement on Monday or Monday. Discharge to home when medically stable after pacemaker placement.
[2017-07-22] MEDS: Atorvastatin* 40 MG TAB PO SCH (21:28)
[2017-07-23] MEDS: Heparin VIAL(*) 5000 UNITS/ML VIAL (FIVE THOUSAND) SUBCUT SCH ×3 (06:30→20:04)
[2017-07-23] MEDS: Aspirin EC TAB* 325 MG PO SCH (08:48)
[2017-07-23] MEDS ORDERED: ALPRAZolam TAB* 0.25 MG PO PRN (13:10)
--- NOTE | 2017-07-23 13:16 | PN ---
Subjective Date of Service: 07/23/17 Interval History: Patient seen and examined at bedside. Mr. Kearns denies CP, SOB, n/v, fever/ chills, or other acute complaints. He appears rather disgruntled, stating "I can 't sleep here" and is anxious to go home. He understands the plan of care. Telemetry: Sinus arrhythmia with PACs and PVCs 40s-60s Family History: Unchanged from Admission Social History: Unchanged from Admission Past Medical History: Unchanged from Admission Objective Active Medications: Acetaminophen (Tylenol Tab*) 650 mg PO Q4H PRN PRN Reason: FEVER/PAIN Al Hydrox/Mg Hydrox/Simethicone (Maalox Plus*) 30 ml PO Q6H PRN PRN Reason: INDIGESTION Last Admin: 07/22/17 04:31 Dose: 30 ml Aspirin (Ecotrin Ec Tab*) 325 mg PO DAILY [facility] Last Admin: 07/23/17 08:48 Dose: 325 mg Atorvastatin Calcium (Lipitor*) 40 mg PO 2100 [facility] Last Admin: 07/22/17 21:28 Dose: 40 mg Docusate Sodium (Colace Cap*) 100 mg PO BID PRN PRN Reason: CONSTIPATION Heparin Sodium (Porcine) (Heparin Vial(*)) 5,000 units SUBCUT Q8HR [facility] Last Admin: 07/23/17 12:18 Dose: Not Given Cefazolin Sodium/Dextrose (Kefzol 2 Gm Premix(*)) 2 gm in 50 mls @ 100 mls/hr IVPB ONCE ONE Stop: 07/24/17 07:29 Sodium Chloride (Ns 0.9% 1000 Ml*) 1,000 mls @ 75 mls/hr IV PER RATE [facility] Ondansetron HCl (Zofran Inj*) 4 mg IV Q4H PRN PRN Reason: NAUSEA/VOMITING Senna (Senokot Tab*) 1 tab PO BID PRN PRN Reason: CONSTIPATION Vital Signs - 8 hr 07/23/17 07/23/17 07/23/17 06:45 08:04 11:45 Temperature 97.7 F 98.3 F Pulse Rate 42 54 Respiratory 16 16 16 Rate Blood Pressure 121/50 127/51 (mmHg) O2 Sat by Pulse 97 95 Oximetry Oxygen Devices in Use Now: None Appearance: Older male, lying in bed, NAD Eyes: No Scleral Icterus Ears/Nose/Mouth/Throat: Clear Oropharnyx, Mucous Membranes Moist Neck: NL Appearance and Movements; NL JVP Respiratory: Symmetrical Chest Expansion and Respiratory Effort, Clear to Auscultation Cardiovascular: NL Sounds; No Murmurs; No JVD, RRR Abdominal: NL Sounds; No Tenderness; No Distention Skin: No Rash or Ulcers Neurological: Alert and Oriented x 3, NL Muscle Strength and Tone Lines/Tubes/Other Access: Clean, Dry and Intact Peripheral IV Nutrition: Taking PO's Result Diagrams: 07/21/17 05:54 07/20/17 15:56 Assess/Plan/Problems-Billing Assessment: Mr. Kearns is a 66 y.o male who has not followed with a primary care provider; came to the emergency room with right sided weakness and pre-syncopal vs TIA symptoms. Patient found to have symptomatic bradycardia. Neurology consult and Cardiology consult appreciated Will have pacemaker placed for bradycardia on Monday. - Patient Problems (1) Bradycardia Code(s): R00.1 - BRADYCARDIA, UNSPECIFIED Comment: - Asymptomatic at this time - Cardiology consult, input appreciated - Nuclear stress - low risk - Continue ASA 325 mg po daily - Plan for pacemaker placement on Monday, needs to stay inpatient until. (2) Abnormal EKG Code(s): R94.31 - ABNORMAL ELECTROCARDIOGRAM [ECG] [EKG] Comment: - Nuclear stress test - Low risk (3) Elevated d-dimer Code(s): R79.89 - OTHER SPECIFIED ABNORMAL FINDINGS OF BLOOD CHEMISTRY Comment : - Suspect this is related to smoking and possible underlying lung disease - Denies chest pain, the patient is not tachycardic, denies shortness of breath , denies leg pain, negative Homans sign, no swelling - No right ventricular enlargement on the echocardiogram - The patient has a low probability of PE, will not pursue further work-up of elevated d-dimer (4) Pre-syncope Comment: - Suspect this is related to bradycardia - Plan for pacemaker placement on Monday (5) Smoker Code(s): F17.200 - NICOTINE DEPENDENCE, UNSPECIFIED, UNCOMPLICATED Comment: - Declines nicotine replacement (6) DVT prophylaxis Comment: - SQ heparin, Pt is declining (7) Full code status Code(s): Z78.9 - OTHER SPECIFIED HEALTH STATUS Status and Disposition: Inpatient. Plan for pacemaker on Monday. Discharge to home when medically stable after pacemaker placement.
[2017-07-23] MEDS ORDERED: Spiriva Inhaler DEVICE* 1 EACH DEVICE INH ONE (17:00)
[2017-07-23] MEDS: Atorvastatin* 40 MG TAB PO SCH (20:16)
[2017-07-24] MEDS: NS 0.9% 1000 ML* 1,000 ML IV SCH ×2 (00:13→20:01)
[2017-07-24] MEDS: Heparin VIAL(*) 5000 UNITS/ML VIAL (FIVE THOUSAND) SUBCUT SCH (04:24)
[2017-07-24] MEDS ORDERED: ceFAZolin 2 GM PREMIX (*) 2 GM/50 ML BAG IVPB ONE (07:00)
[2017-07-24 07:47] LABS: EGFR Non-African American 89.6 (>60)
[2017-07-24] MEDS ORDERED: Flumazenil* 0.1 MG/ML 5 ML MDV ONE (08:16)
[2017-07-24] MEDS ORDERED: Iohexol 300 (CONTRAST) 10 ML SDV ONE (08:16)
[2017-07-24] MEDS ORDERED: Lidocaine 1% INJ* 10 MG/ML 30 ML SDV ONE (08:16)
[2017-07-24] MEDS ORDERED: Naloxone* 0.4 MG/ML 1 ML VIAL ONE (08:16)
[2017-07-24] MEDS ORDERED: Midazolam* 1 MG/ML 10 ML VIAL (10 MG) ONE (08:16)
[2017-07-24] MEDS ORDERED: fentaNYL* 50 MCG/ML 2 ML VIAL (100 MCG VIAL) ONE (08:17)
[2017-07-24] MEDS: Aspirin EC TAB* 325 MG PO SCH (09:31)
--- NOTE | 2017-07-24 14:01 | RAD ---
HISTORY: Status post pacemaker placement, TIA COMPARISONS: July 18, 2012 VIEWS: 1: frontal portable view of the chest at 1:09 PM FINDINGS: LINES AND TUBES: Left-sided pacemaker is noted. The leads are intact. CARDIOMEDIASTINAL SILHOUETTE: The cardiomediastinal silhouette is normal for portable technique. PLEURA: The costophrenic angles are sharp. No pleural abnormalities are noted. There is no appreciable pneumothorax. LUNG PARENCHYMA: The lungs are clear. ABDOMEN: The upper abdomen is clear. There is no subphrenic gas. BONES AND SOFT TISSUES: No bone or soft tissue abnormalities are noted. IMPRESSION: NO ACTIVE CARDIOPULMONARY DISEASE.
[2017-07-24] MEDS: ceFAZolin 1 GM VIAL(*) 1 GM in NS 0.9% 50 ML* 50 ML IVPB SCH (15:34)
--- NOTE | 2017-07-24 18:37 | PN ---
Subjective Date of Service: 07/24/17 Interval History: c/o mild ache at the incision line to left shoulder. Denies chest pain, shortness of breath or abd pain. denies N/V/D. Family History: Unchanged from Admission Social History: Unchanged from Admission Past Medical History: Unchanged from Admission Objective Active Medications: Acetaminophen (Tylenol Tab*) 650 mg PO Q4H PRN PRN Reason: FEVER/PAIN Al Hydrox/Mg Hydrox/Simethicone (Maalox Plus*) 30 ml PO Q6H PRN PRN Reason: INDIGESTION Last Admin: 07/22/17 04:31 Dose: 30 ml Alprazolam (Xanax Tab*) 0.25 mg PO BEDTIME PRN PRN Reason: ANXIETY Aspirin (Ecotrin Ec Tab*) 325 mg PO DAILY [facility] Last Admin: 07/24/17 09:31 Dose: Not Given Atorvastatin Calcium (Lipitor*) 40 mg PO 2100 [facility] Last Admin: 07/23/17 20:16 Dose: 40 mg Docusate Sodium (Colace Cap*) 100 mg PO BID PRN PRN Reason: CONSTIPATION Sodium Chloride (Ns 0.9% 1000 Ml*) 1,000 mls @ 75 mls/hr IV PER RATE [facility] Last Admin: 07/24/17 00:13 Dose: 75 mls/hr Cefazolin Sodium 1 gm/ Sodium (Chloride) 50 mls @ 200 mls/hr IVPB Q8H [facility] Stop: 07/25/17 08:14 Last Admin: 07/24/17 15:34 Dose: 200 mls/hr Ondansetron HCl (Zofran Inj*) 4 mg IV Q4H PRN PRN Reason: NAUSEA/VOMITING Senna (Senokot Tab*) 1 tab PO BID PRN PRN Reason: CONSTIPATION Vital Signs - 8 hr 07/24/17 07/24/17 07/24/17 10:56 10:59 11:26 Temperature Pulse Rate Respiratory Rate Blood Pressure 131/73 135/76 (mmHg) O2 Sat by Pulse 93 Oximetry 07/24/17 07/24/17 07/24/17 11:56 11:59 12:26 Temperature Pulse Rate Respiratory Rate Blood Pressure 148/72 129/64 (mmHg) O2 Sat by Pulse 91 Oximetry 07/24/17 07/24/17 07/24/17 12:56 13:26 13:56 Temperature Pulse Rate Respiratory Rate Blood Pressure 140/63 130/64 133/66 (mmHg) O2 Sat by Pulse Oximetry 07/24/17 07/24/17 07/24/17 14:26 14:56 15:23 Temperature Pulse Rate Respiratory Rate Blood Pressure 149/69 153/68 151/59 (mmHg) O2 Sat by Pulse Oximetry 07/24/17 07/24/17 07/24/17 15:50 15:56 16:56 Temperature 98.0 F Pulse Rate 59 Respiratory 16 Rate Blood Pressure 143/63 148/75 (mmHg) O2 Sat by Pulse 95 93 Oximetry 07/24/17 17:03 Temperature Pulse Rate Respiratory Rate Blood Pressure 151/77 (mmHg) O2 Sat by Pulse Oximetry Oxygen Devices in Use Now: None Appearance: appears comfortable resting in bed s/p pacemaker placement. Eyes: No Scleral Icterus Ears/Nose/Mouth/Throat: Clear Oropharnyx, Mucous Membranes Moist Neck: NL Appearance and Movements; NL JVP, Trachea Midline Respiratory: Symmetrical Chest Expansion and Respiratory Effort, Clear to Auscultation Cardiovascular: NL Sounds; No Murmurs; No JVD, RRR, No Edema Abdominal: NL Sounds; No Tenderness; No Distention Extremities: No Edema, No Clubbing, Cyanosis, - - shoulder immoblizer intact to right arm Skin: No Rash or Ulcers Neurological: Alert and Oriented x 3, NL Sensation, NL Muscle Strength and Tone Nutrition: Taking PO's Result Diagrams: 07/21/17 05:54 07/24/17 06:59 Assess/Plan/Problems-Billing Assessment: Mr. Kearns is a 66 y.o male who has not followed with a primary care provider; came to the emergency room with right sided weakness and pre-syncopal vs TIA symptoms. Patient found to have symptomatic bradycardia. Neurology consult and Cardiology consult appreciated Will have pacemaker placed for bradycardia on Monday. - Patient Problems (1) Bradycardia Current Visit: Yes Status: Acute Code(s): R00.1 - BRADYCARDIA, UNSPECIFIED SNOMED Code(s): 17153843 Comment: - Asymptomatic at this time - Cardiology consult, input appreciated - Nuclear stress - low risk - Continue ASA 325 mg po daily - Plan for pacemaker placement on Monday, needs to stay inpatient until. (2) Pre-syncope Current Visit: Yes Status: Acute Comment: - Suspect this is related to bradycardia - Plan for pacemaker placement on Monday (3) Abnormal EKG Current Visit: Yes Status: Acute Code(s): R94.31 - ABNORMAL ELECTROCARDIOGRAM [ECG] [EKG] SNOMED Code(s): 240622241 Comment: - Nuclear stress test - Low risk (4) Elevated d-dimer Current Visit: Yes Status: Acute Code(s): R79.89 - OTHER SPECIFIED ABNORMAL FINDINGS OF BLOOD CHEMISTRY SNOMED Code(s): 065432975 Comment: - Suspect this is related to smoking and possible underlying lung disease - Denies chest pain, the patient is not tachycardic, denies shortness of breath , denies leg pain, negative Homans sign, no swelling - No right ventricular enlargement on the echocardiogram - The patient has a low probability of PE, will not pursue further work-up of elevated d-dimer (5) Status post placement of cardiac pacemaker Current Visit: Yes Status: Acute Code(s): Z95.0 - PRESENCE OF CARDIAC PACEMAKER SNOMED Code(s): 494423625 Comment: pacemaker placed today tolerated procedure well right shoulder immobilzer in place dressing dry and intact to right chest. will continue to monitor on telemetry. Status and Disposition: Inpatient. Plan for pacemaker on Monday. Discharge to home when medically stable after pacemaker placement.
[2017-07-24] MEDS: Atorvastatin* 40 MG TAB PO SCH (21:26)
--- NOTE | 2017-07-25 01:23 | OP ---
DATE OF OPERATION: 07/24/17 - ROOM #[id number] DATE OF : 46 SURGEON: Manuela Lynch MD ANESTHESIA: MAC. PRE-OP DIAGNOSIS: Sick sinus syndrome. POST-OP DIAGNOSIS: Sick sinus syndrome. OPERATIVE PROCEDURE: Dual-chamber pacemaker implantation. ESTIMATED BLOOD LOSS: Less than 5 cc. COMPLICATIONS: None. INDICATIONS: The indications, risks, and benefits of the procedure have been discussed with the patient in the presence of his family. They were amenable to proceeding. DESCRIPTION OF PROCEDURE: The patient is right-handed and the left subclavian fossa was prepped and draped in the usual sterile fashion. A time-out procedure was called. The patient received a total of 15 cc of 1% lidocaine in addition to 7 mg of Versed and 75 mcg of fentanyl throughout the procedure. 10 cc of radiopaque dye was injected in the left upper extremity, outlining a left axillary and left subclavian vein. Following this using a 10-blade, a 2.5- cm incision was made in the left subclavian fossa and using Bovie and blunt dissection was extended to the level of the pectoralis muscle. Additional lidocaine was infused inferiorly and medially and using blunt dissection, a small pocket was fashioned. Using a modified Seldinger technique, the left subclavian vein was accessed and a guidewire inserted using fluoroscopic guidance. This procedure was repeated with a second guidewire. Using an introducer technique, right ventricular lead was guided in the right ventricular apex and actively fixed in place. Pacing and sensing thresholds were checked and found to be good. Using the second guidewire and an introducer, the right atrial lead was guided in a right atrial appendage, actively fixed in place. Pacing and sensing thresholds were checked and found to be good. The leads were then sutured to the pocket using 0 silk suture. The pocket was then copiously irrigated. The leads were attached to the device. The device was placed in the pocket. Thresholds were rechecked and the pocket was closed using 2 layers of resorbable suture followed by alvaro and an external dressing. FINDINGS: The entire system is an MRI compatible system. The device is a [employer] Advisa A2DR01, serial number [id number]. Currently, programmed in dual- chamber mode with a low rate of 60 beats a minute. The atrial lead is a Medtronic model 5076-52, serial number [id number] with P- wave sensed at 5.4 millivolts and atrial lead impedance of 742 ohms and an atrial pacing threshold of 1.3 volts at 0.5 milliseconds. The ventricular lead is a Medtronic model 5076-58, serial number [id number] with R- wave sensed at 6 millivolts, ventricular lead impedance of 1130 ohms and a ventricular pacing threshold of 1.2 volts at 0.5 milliseconds. The patient was hemodynamically stable throughout the procedure and on transfer to the floor. Again, no complications. [id number]/[facility] #: [id number] [place]YL[place]
[2017-07-25] MEDS: ceFAZolin 1 GM VIAL(*) 1 GM in NS 0.9% 50 ML* 50 ML IVPB SCH ×2 (01:49→08:55)
[2017-07-25] MEDS: Aspirin EC TAB* 325 MG PO SCH (08:56)
--- NOTE | 2017-07-25 09:07 | RAD ---
INDICATION: Device implant COMPARISON: July 24, 2017 TECHNIQUE: PA and lateral dual-energy views were obtained. FINDINGS: Bones/Soft Tissues: There are no acute bony findings. There is a left-sided cardiac pacemaker Cardiomediastinal: The cardiomediastinal silhouette is normal. There is no vascular congestion Lungs: There are no infiltrates. Pleura: There are no pleural effusions. Other: None IMPRESSION: RECENT CARDIAC PACEMAKER PLACEMENT. LUNGS CLEAR. NO PNEUMOTHORAX.
[2017-07-25 10:31] VITALS: BP 139/69
--- NOTE | 2017-07-25 19:45 | PN ---
Subjective Date of Service: 07/25/17 Interval History: Feels better today, denies chest pain, shortness of breath or abd pain. Denies N/V/D. Family History: Unchanged from Admission Social History: Unchanged from Admission Past Medical History: Unchanged from Admission Objective Oxygen Devices in Use Now: None Appearance: awake and alert, sittingin the bed, appears comfortable Eyes: No Scleral Icterus Ears/Nose/Mouth/Throat: Clear Oropharnyx, Mucous Membranes Moist Neck: NL Appearance and Movements; NL JVP, Trachea Midline Respiratory: Symmetrical Chest Expansion and Respiratory Effort, Clear to Auscultation Cardiovascular: NL Sounds; No Murmurs; No JVD, No Edema Abdominal: NL Sounds; No Tenderness; No Distention Extremities: No Edema, No Clubbing, Cyanosis Skin: No Rash or Ulcers, - - dressing dry and intact to left chest Neurological: Alert and Oriented x 3, NL Sensation, NL Gait, NL Muscle Strength and Tone Nutrition: Taking PO's Result Diagrams: 07/21/17 05:54 07/24/17 06:59 Assess/Plan/Problems-Billing Assessment: Mr. Kearns is a 66 y.o male who has not followed with a primary care provider; came to the emergency room with right sided weakness and pre-syncopal vs TIA symptoms. Patient found to have symptomatic bradycardia. Neurology consult and Cardiology consult appreciated Will have pacemaker placed for bradycardia on Monday. - Patient Problems (1) Bradycardia Status: Acute Code(s): R00.1 - BRADYCARDIA, UNSPECIFIED SNOMED Code(s): 51877843 Comment: - Asymptomatic at this time - Cardiology consult, input appreciated - Nuclear stress - low risk - Plan for pacemaker placement - completed (2) Pre-syncope Status: Acute Comment: - Suspect this is related to bradycardia - Plan for pacemaker placement on Monday- completed follow up with Dr. Lynch in 7 to 10 days (3) Abnormal EKG Status: Acute Code(s): R94.31 - ABNORMAL ELECTROCARDIOGRAM [ECG] [EKG] SNOMED Code(s): 591873053 Comment: - Nuclear stress test - Low risk (4) Elevated d-dimer Status: Acute Code(s): R79.89 - OTHER SPECIFIED ABNORMAL FINDINGS OF BLOOD CHEMISTRY SNOMED Code(s): 171854706 Comment: - Suspect this is related to smoking and possible underlying lung disease - Denies chest pain, the patient is not tachycardic, denies shortness of breath , denies leg pain, negative Homans sign, no swelling - No right ventricular enlargement on the echocardiogram - The patient has a low probability of PE, will not pursue further work-up of elevated d-dimer (5) Status post placement of cardiac pacemaker Status: Acute Code(s): Z95.0 - PRESENCE OF CARDIAC PACEMAKER SNOMED Code(s) : 593927281 Comment: pacemaker placed today tolerated procedure well left shoulder immobilzer in place dressing dry and intact to right chest. will continue to monitor on telemetry. Status and Disposition: Plan for pacemaker on Monday. Discharge to home
== END 2017-07-25 13:25 | disposition home or self-care (01) | DRG 243 ==
LOC: ED 18:38 → MEDTELE 07-19 00:07 → OBSVTOIN 07-20 16:12
PROVIDERS: ADMIT Pediatrics; ATTEND Internal Medicine
PROC: 02H63JZ Insertion of Pacemaker Lead into Right Atrium, Percutaneous Approach (ICD-10-PCS; 2017-07-24)
PROC: 02HK3JZ Insertion of Pacemaker Lead into Right Ventricle, Percutaneous Approach (ICD-10-PCS; 2017-07-24)
PROC: 0JH606Z Insertion of Pacemaker, Dual Chamber into Chest Subcutaneous Tissue and Fascia, Open Approach (ICD-10-PCS; principal; 2017-07-24 08:15)
DX: I49.5 Sick sinus syndrome (principal); I45.2 Bifascicular block; I07.1 Rheumatic tricuspid insufficiency; E78.5 Hyperlipidemia, unspecified; F17.210 Nicotine dependence, cigarettes, uncomplicated; I10 Essential (primary) hypertension; R40.2412 Glasgow coma scale score 13-15, at arrival to emergency department; R79.89 Other specified abnormal findings of blood chemistry; R53.1 Weakness; Z82.49 Family history of ischemic heart disease and other diseases of the circulatory system; Z82.0 Family history of epilepsy and other diseases of the nervous system
CPT/HCPCS: 33208; 36415; 70450; 70496; 70498; 70551; 71045; 71046; 78452; 80048; 80053; 80061; 83735; 84443; 84484; 85025; 85379; 93005; 93017; 93306; 96372; 96374; 99156; 99157; 99283; 99406; A9270-GY; A9502; C1785; C1898; C8929; G0378; G8978-GP-CH; G8979-GP-CH; G8980-GP-CH; J0280; J0690; J1644; J2250; J2310; J2785; J3010; Q9967